=== PATIENT | male | born 1945 | race Asian ===

== ENCOUNTER 2018-03-19 07:18 | Day surgery (SDC) | payer MEDICARE, OTHER ==
[2018-03-15 10:11] VITALS: BMI 31.3
[~2018-03-19 07:18] MED LIST: LACTATED RINGERS 1,000 ML IV SCH; LIDOCAINE 1% 20 ML VIAL (10MG/ML) FOR IV START INTRADERMA PRN
[2018-03-19 07:29] VITALS: RESP 18; TEMP 97.8
[2018-03-19] MEDS ORDERED: LACTATED RINGERS 1,000 ML IV ONE (07:29)
[2018-03-19 07:44] LABS: Glucose,Whole Blood 238 mg/dL (75-99)
[2018-03-19] MEDS ORDERED: PROPOFOL 10 MG/ML 20 ML VIAL IV ONE (08:29)
[2018-03-19] MEDS ORDERED: LIDOCAINE 1% INJ 10MG/ML (20 ML MDV) ONE (08:29)
[2018-03-19 09:35] VITALS: BP 145/78; PULSE 88
--- NOTE | 2018-03-19 10:45 | P.PCN ---
Date of Procedure: 03/19/18 Procedure(s) Performed: Procedure: 1. Esophagogastroduodenoscopy and biopsy. 2. Colonoscopy and polypectomy. Preoperative diagnosis: Chronic reflux symptoms requiring PPI therapy for control and recent rectal bleeding. Postoperative diagnosis: 1. Small sliding hiatal hernia with no obvious esophagitis or conjugated reflux disease. 2. Mild antral gastritis and minimal duodenitis. 3. Multiple biopsies obtained from the duodenum, antrum and esophagus. 4. Small polyp in the cecum snared but no large polyps or cancer. 5. Low-grade internal hemorrhoids not bleeding at the time of this exam. Preparation: HalfLytely prep. Sedation: Was provided by anesthesia. 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 The patient has been taking PPI for more than 10 years with recurrence of his symptoms should he stop the medications. No dysphagia or other alarm symptoms. He had a colonoscopy more than 20 years ago. He was doing well until around 10 days ago when he started to have intermittent rectal bleeding, mostly painless with fresh blood. Procedure: With the patient on his left lateral decubitus position and after informed consent and adequate sedation, I passed the Olympus-GIF 160 video upper endoscope through the cricopharyngeus down the esophagus. GE junction was around 38 cm from the incisors and there was a small sliding hiatal hernia between 1 and 2 cm in size. The esophagus did not show any obvious erosions or ulcers. There were no strictures or Murray's esophagus. The endoscope was then passed into the stomach which was insufflated with air and inspected in detail including the retroflex view in the cardia. There was some mottling and erythema and few scattered erosions in the antrum consistent with antral gastritis but there were no ulcers or bleeding. Pyloric channel did not show any ulcers. Duodenal bulb showed minimal erythema, post bulbar area and descending duodenum showed minimal erythema but no obvious ulcers or erosions. I obtained biopsies from the duodenum, antrum and esophagus then the endoscope was withdrawn and I proceeded with the colonoscopy. Perianal area did not show any fissures or fistulas. There was some skin redundancy and skin relaxation. There were no masses felt on digital rectal examination. The Olympus CFQ 160L video colonoscope was then inserted in the rectum in the usual fashion and advanced to the cecum. There was a small polyp in the cecum which I snared and retrieved by suction, otherwise, exam showed healthy mucosa no other polyps or tumors or any obvious diverticular disease. I retroflexed the endoscope in the rectum before the endoscope was withdrawn. Low-grade internal hemorrhoids were noted with no evidence of bleeding. The patient tolerated the procedure well. Plan: The patient was reassured. Discussed dietary measures and local care for hemorrhoids and antireflux diet. I anticipate repeating his colonoscopy in 5 years. He will continue acid suppressive treatment and make medication choices and dose adjustments based on his symptoms.
== END 2018-03-19 09:55 | disposition home or self-care (01) ==
LOC: ORWHC2ENDO 07:18
DX: D12.0 Benign neoplasm of cecum (principal); K29.70 Gastritis, unspecified, without bleeding; K21.9 Gastro-esophageal reflux disease without esophagitis; K62.5 Hemorrhage of anus and rectum; K44.9 Diaphragmatic hernia without obstruction or gangrene; K64.8 Other hemorrhoids; K29.80 Duodenitis without bleeding; K63.5 Polyp of colon; E11.9 Type 2 diabetes mellitus without complications; I10 Essential (primary) hypertension; E78.5 Hyperlipidemia, unspecified; Z79.84 Long term (current) use of oral hypoglycemic drugs; Z79.899 Other long term (current) drug therapy
CPT/HCPCS: 88305; 45385; 43239; J2001; J2704